=== PATIENT | female | born 1970 | race Two or more races ===

== ENCOUNTER 2021-08-29 02:00 | Outpatient (CLI) | payer OTHER | END 2021-08-29 12:30 | disposition home or self-care (01) | LOC: PPH VACUNA 02:00 | PROVIDERS: ATTEND Emergency Medicine Pediatric Emergency Medicine | DX: Z23 Encounter for immunization (principal) ==

== ENCOUNTER 2022-04-12 13:00 | Outpatient (CLI) | payer OTHER | END 2022-04-12 13:05 | disposition home or self-care (01) | LOC: PPH VACUNA 13:00 | PROVIDERS: ATTEND Emergency Medicine Pediatric Emergency Medicine | DX: Z23 Encounter for immunization (principal) ==

== ENCOUNTER 2023-03-29 00:15 | Outpatient (CLI) | payer OTHER ==
[~2023-03-29 00:15] MED LIST: ACTOS45 MG PO; FLONASE ALLERG9.9 ML NASAL; GLIPIZIDE XL10 MG PO; JENTADUETO 2.51 EAC2 PO; LIPITOR40 M1 PO; SINUS RINSE ST1 EACH NASAL; SYNTHROID50 MCG PO; ZYRTEC10 M3 PO
== END 2023-03-29 00:30 | disposition home or self-care (01) ==
LOC: PPH VACUNA 00:15
PROVIDERS: ATTEND Emergency Medicine Pediatric Emergency Medicine
DX: Z23 Encounter for immunization (principal)

== ENCOUNTER 2023-07-24 08:27 | Emergency (ER) | payer OTHER ==
[~2023-07-24] VITALS: Ht 167.6 cm; Wt 72.6 kg
== END 2023-07-24 13:07 | disposition home or self-care (01) ==
LOC: ER 08:27
DX: S60.021A Contusion of right index finger without damage to nail, initial encounter (principal); X58.XXXA Exposure to other specified factors, initial encounter; Y93.89 Activity, other specified; Y92.230 Patient room in hospital as the place of occurrence of the external cause; Y99.8 Other external cause status; Z88.0 Allergy status to penicillin; Z88.2 Allergy status to sulfonamides; Z88.8 Allergy status to other drugs, medicaments and biological substances